=== PATIENT | male | born 2000 | race Caucasian/White ===

== ENCOUNTER 2022-07-21 14:02 | Emergency (ER) | payer BC, SELFPAY ==
[2022-07-21 14:30] VITALS: PULSE 96; RESP 24; TEMP 38.8; O2SAT 99; BMI 25.8
[2022-07-21 15:12] LABS: PCR FLU A Negative PCR FLU A (Negative); PCR FLU B Negative PCR FLU B (Negative); PCR RSV Negative PCR RSV (Negative)
--- NOTE | 2022-07-21 15:13 | ED.GENADULT ---
HPI - General Adult General Time Seen by Provider: 15:13 Date Seen: 07/21/22 Chief complaint: Fever Stated complaint: Fever Nausea Headache Body pain Time Seen by Provider: 07/21/22 14:44 Source: patient Mode of arrival: ambulatory Limitations: no limitations History of Present Illness HPI narrative: Chase is a 21-year-old male with no past medical history presents emerged department with co-worker with fever. Patient states that he started having a fever Tuesday evening, did work over the weekend which involves traveling to different homes meeting different people. Symptoms include feeling very warm, chills, denies any real cough, he has had a headache which is bitemporal tension-like radiates to the back of his neck. Associated nausea but no vomiting, his oral intake has decreased, denies any smoking history, denies any alcohol use. She has also had ongoing body aches, myalgias, patient has had COVID in the past including January of 2022 and also in 2019, he got 1 of the vaccinations for COVID. Denies any sick contacts. He was seen in [facility] urgency Room yesterday, urinalysis was negative, COVID/influenza and rapid strep were negative. He was given some IV fluids Toradol and felt better and was sent home. Continue to have sweats, chills and fever overnight and this morning, last time he took Tylenol Motrin was about 6 hours ago. Times he feels disorientated especially when he ambulates, almost like tunnel vision. He has had associated left-sided chest tightness, no real chest pain or shortness of breath, no abdominal pain or diarrhea. No recent travel. Denies difficulty moving his neck. He was seen in clinic today and was sent over here. Related Data Home Medications Medication Instructions Recorded Confirmed acetaminophen 500 mg tablet 500 mg PO Q6H PRN 07/21/22 07/21/22 (Acetaminophen Extra Strength) ibuprofen 600 mg tablet 600 mg PO Q6H PRN 07/21/22 07/21/22 ondansetron 4 mg disintegrating 4 mg PO Q6H 07/21/22 07/21/22 tablet Allergies Allergy/AdvReac Type Severity Reaction Status Date / Time No Known Drug Allergies Allergy Verified 07/21/22 14:29 Review of Systems Status of ROS: Reports: 10 or more systems reviewed and unremarkable except as noted in History and below PFSH PFSH Social History Smoking Status: Former smoker Do you use any of these nicotine containing products: None Second hand tobacco smoke exposure: No How often do you have a drink containing alcohol: monthly or less AUDIT-C Alcohol total score: 1 Non-prescribed substance use: denies use Exam Narrative: Exam Narrative: General: No obvious distress, laying comfortably, nontoxic in appearance HEENT: Oropharynx is moist, bilaterally enlarged tonsils right greater than left, right tonsillar pillar has exudate, uvula midline, no abscess Right submandibular adenopathy, pupils equal round reactive to light, extraocular muscles intact, nontender to palpation of frontal maxillary sinuses, Tympanic membranes within normal limits bilaterally Neck: No meningeal signs, full range of motion, supple Lungs: Clear to auscultation bilaterally Heart: Normal sinus rhythm S1-S2 Abdomen: Bowel sounds present, soft, nontender in all 4 quadrants Muscle skeletal: No joint swelling, full range of motion upper lower extremities, +5 strength upper lower extremities Neuro: Alert awake and oriented x3, cranial nerves 2-12 grossly intact Const: Vital Signs, click to edit/add: Vital Signs - 24 hr 07/21/22 14:30 07/21/22 16:58 07/21/22 16:59 Temperature 102 F H 98.1 F 98.1 F Pulse Rate [Pulse Oximeter] 96 Respiratory Rate 24 18 Pulse Oximetry 99 98 Oxygen Delivery Me thod Room Air Room Air Course Course Hospital Course: 3:00 PM: AIDET performed. Vitals show fever of 102, vitals otherwise stable, workup will include rapid strep PCR, SARs/influenza/RSV, blood work will include Monospot, CBC, lactate, blood cultures and CMP. Less likely meningitis, seems more viral related, 1 L 0.9 normal saline bolus, 1 g Tylenol and 30 mg IV Toradol for his headache, myalgias joint pain. Seems viral in origin. Differential diagnosis include COVID-19, strep throat illness, infectious mononucleosis, pneumonia, bronchitis, intra-abdominal infections, urinary tract infection meningitis, osteomyelitis, influenza as well as all etiologies. Reevaluation(s) Reevaluation #1: 5:00PM: Patient was updated on his lab imaging results, SARs/influenza/RSV was negative, rapid strep PCR was also negative, CBC showed no leukocytosis, lactate 1.1, infectious mononucleosis was also normal, XR chest PA and lateral showed no acute cardiopulmonary process, he was given IV fluids, Tylenol and Toradol and his symptoms improved, also obtain chlamydia/GC DNA amplified in house urine sample patient has requested, he has no urinary symptoms. Urinalysis from yesterday was negative. Fever resolved during stay in the emergency department, plan would be to discharge, he will follow up with his primary care provider over the next 5-7 days for year followup and recheck. Reasons to return given. Vital Signs Vital signs: Initial Vital Signs Temperature 102 F H 07/21/22 14:30 Temperature Source Temporal Artery Scan 07/21/22 14:30 Pulse Rate 96 07/21/22 14:30 Pulse Rhythm 07/21/22 14:30 Respiratory Rate 24 07/21/22 14:30 Pulse Oximetry 99 07/21/22 14:30 Oxygen Delivery Method 07/21/22 14:30 Vital Signs Temperature 102 F H 07/21/22 14:30 Pulse Rate 96 07/21/22 14:30 Respiratory Rate 24 07/21/22 14:30 Pulse Oximetry 99 07/21/22 14:30 Oxygen Delivery Method 07/21/22 14:30 Temperature 98.1 F 07/21/22 16:59 Pulse Rate 96 07/21/22 14:30 Respiratory Rate 18 07/21/22 16:59 Pulse Oximetry 98 07/21/22 16:59 Oxygen Delivery Method 07/21/22 16:59 Medical Decision Making Lab Data Labs: Lab Results 07/21/22 07/21/22 07/21/22 Range/Units 04:15 04:15 04:15 WBC 7.71 (4.50-11.00) K/uL RBC 5.04 (4.30-5.90) m/uL Hgb 14.2 (13.5-17.5) gm/dL Hct 42.0 (37.0-53.0) % MCV 83 (80-100) fL MCH 28 (26-34) pg MCHC 34 (32-36) gm/dL RDW Coeff of Evan 12.0 (11.5-15.5) % Plt Count 150 (140-440) K/uL Neut % (Auto) 73.5 H (42.0-72.0) % Lymph % (Auto) 13.2 L (20-44) % Starke % (Auto) 12.6 H (0.0-11.0) % Eos % (Auto) 0.0 (0.0-7.0) % Baso % (Auto) 0.1 (0.0-3.0) % Neut # (Auto) 5.70 (1.7-7.0) K/uL Lymph # (Auto) 1.00 (0.90-2.90) K/uL Starke # (Auto) 1.00 H (0.00-0.90) K/UL Eos # (Auto) 0.00 (0.00-0.50) K/uL Baso # (Auto) 0.01 (0.00-0.30) K/uL Abs Immat Gran (auto) 0.05 (0.00-0.30) K/uL Sodium 135 (135-149) mmol/L Potassium 4.1 (3.6-5.1) mmol/L Chloride 98 (96-114) mmol/L Carbon Dioxide 26 (20-32) mmol/L BUN 11 (5-24) mg/dL Creatinine 0.9 (0.5-1.5) mg/dL Estimated Creat Clear 112.94 Estimated GFR 125 ml/min Glucose 94 (60-115) mg/dL Lactate (0.5-1.9) mmol/L Calcium 8.9 (8.4-10.6) mg/dL Total Bilirubin 0.7 (0.1-1.5) mg/dL AST 22 (12-35) U/L ALT 13 (4-50) U/L Alkaline Phosphatase 48 (40-150) U/L Total Protein 7.7 (6.0-8.3) g/dL Albumin 4.7 (3.3-5.0) g/dL SARS-CoV-2 (PCR) (Negative) Monoscreen Negative (Negative) Influenza Type A (PCR) (Negative) Influenza Type B (PCR) (Negative) RSV (PCR) (Negative) Group A Strep DNA (No Detected) 07/21/22 07/21/22 07/21/22 Range/Units 04:15 14:13 15:30 WBC (4.50-11.00) K/uL RBC (4.30-5.90) m/uL Hgb (13.5-17.5) gm/dL Hct (37.0-53.0) % MCV (80-100) fL MCH (26-34) pg MCHC (32-36) gm/dL RDW Coeff of Evan (11.5-15.5) % Plt Count (140-440) K/uL Neut % (Auto) (42.0-72.0) % Lymph % (Auto) (20-44) % Starke % (Auto) (0.0-11.0) % Eos % (Auto) (0.0-7.0) % Baso % (Auto) (0.0-3.0) % Neut # (Auto) (1.7-7.0) K/uL Lymph # (Auto) (0.90-2.90) K/uL Starke # (Auto) (0.00-0.90) K/UL Eos # (Auto) (0.00-0.50) K/uL Baso # (Auto) (0.00-0.30) K/uL Abs Immat Gran (auto) (0.00-0.30) K/uL Sodium (135-149) mmol/L Potassium (3.6-5.1) mmol/L Chloride (96-114) mmol/L Carbon Dioxide (20-32) mmol/L BUN (5-24) mg/dL Creatinine (0.5-1.5) mg/dL Estimated Creat Clear Estimated GFR ml/min Glucose (60-115) mg/dL Lactate 1.1 (0.5-1.9) mmol/L Calcium (8.4-10.6) mg/dL Total Bilirubin (0.1-1.5) mg/dL AST (12-35) U/L ALT (4-50) U/L Alkaline Phosphatase (40-150) U/L Total Protein (6.0-8.3) g/dL Albumin (3.3-5.0) g/dL SARS-CoV-2 (PCR) Negative SARS-CoV-2 (Negative) Monoscreen (Negative) Influenza Type A (PCR) Negative PCR FLU A (Negative) Influenza Type B (PCR) Negative PCR FLU B (Negative) RSV (PCR) Negative PCR RSV (Negative) Group A Strep DNA NOT DETECTED (No Detected) Discharge Plan Discharge Clinical Impression: Fever Patient Disposition: Home, Self-Care Condition: Improved Instructions: Fever in Adults (ED) Additional Instructions: To continue with Motrin 600 mg and Tylenol every 6 hours for pain, follow-up with a primary care provider over the next 5-7 days for ER followup and recheck. Return precautions given. Prescriptions: No Action acetaminophen [Acetaminophen Extra Strength] 500 mg tablet 500 mg PO Q6H PRN ibuprofen 600 mg tablet 600 mg PO Q6H PRN ondansetron 4 mg tablet,disintegrating 4 mg PO Q6H Follow Up/Referrals: Provider,Not a Local [Primary Care Provider] - Stand Alone Forms: Refinder by [employer] Info Instructions
[2022-07-21 15:17] LABS: SARS PCR* Negative SARS-CoV-2 (Negative)
[2022-07-21] MEDS: ACETAMINOPHEN 500 MG TABLET 1000 MG PO (15:56)
[2022-07-21] MEDS: KETOROLAC 30 MG/ML inj IVP (15:56)
[2022-07-21] MEDS: 0.9 % SODIUM CHLORIDE 1000 ml 1,000 ML IV (15:57)
[2022-07-21 15:59] LABS: Lactate* 1.1 mmol/L (0.5-1.9)
[2022-07-21 16:03] LABS: Basophils Absolute Auto 0.01 K/uL (0.00-0.30); Basophils Percent Auto 0.1 % (0.0-3.0); Hemoglobin* 14.2 gm/dL (13.5-17.5); Immature Granulocytes Abs Auto 0.05 K/uL (0.00-0.30); Lymphocytes Percent Auto 13.2 % (20-44); Mean Corpuscular HGB Conc 34 gm/dL (32-36); Mean Corpuscular Hemoglobin 28 pg (26-34); Mean Corpuscular Volume 83 fL (80-100); Monocytes Percent Auto 12.6 % (0.0-11.0); Neutrophils Percent Auto 73.5 % (42.0-72.0); Platelet Count* 150 K/uL (140-440); Red Blood Count 5.04 m/uL (4.30-5.90); White Blood Count* 7.71 K/uL (4.50-11.00)
[2022-07-21 16:09] LABS: Mono Screen* Negative (Negative)
[2022-07-21 16:10] LABS: Albumin* 4.7 g/dL (3.3-5.0); Chloride* 98 mmol/L (96-114)
[2022-07-21 16:11] LABS: Potassium* 4.1 mmol/L (3.6-5.1); Sodium* 135 mmol/L (135-149)
[2022-07-21 16:12] LABS: Slide Review Reflex No
[2022-07-21 16:13] LABS: Alkaline Phosphatase* 48 U/L (40-150); Aspartate Amino Transferase* 22 U/L (12-35); Bilirubin Total* 0.7 mg/dL (0.1-1.5); Blood Urea Nitrogen* 11 mg/dL (5-24); Carbon Dioxide* 26 mmol/L (20-32); Creatinine* 0.9 mg/dL (0.5-1.5); Est. Creatinine Clearance* 112.94; Estimated Glomerular Filt Rate 125 ml/min; Total Protein* 7.7 g/dL (6.0-8.3)
[2022-07-21 16:14] LABS: Alanine Aminotransferase* 13 U/L (4-50); Calcium* 8.9 mg/dL (8.4-10.6); Glucose* 94 mg/dL (60-115)
--- NOTE | 2022-07-21 16:15 | CRLHL7_ITS ---
For Patients: As a result of the Century Cures Act, medical imaging exams and procedure reports are released immediately into your electronic medical record. You may view this report before your referring provider. If you have questions, please contact your health care provider. INDICATION: R/O PNA? TECHNIQUE: Chest 2 views. COMPARISON: 12/04/09 FINDINGS: Cardiovascular and mediastinum: Heart size and vasculature are normal in caliber and appearance. Mediastinum is within normal limits. Lungs and pleural spaces: Lungs are clear. No sign of infiltrate or mass. No sign of pleural effusion. No pneumothorax. Bones and soft tissues: No significant findings. IMPRESSION: Unremarkable chest. Dictated by: Mukund Bender MD @ 07/21/2022 17:13:20 (Electronically Signed)
[2022-07-21 16:20] LABS: Strep A DNA Probe* NOT DETECTED (No Detected)
[2022-07-21 16:58] VITALS: TEMP 36.7
[2022-07-21 16:59] VITALS: RESP 18; TEMP 36.7; O2SAT 98
[2022-07-21 19:46] LABS: GC DNA Amplified* NOT DETECTED (No Detected)
[2022-07-21 20:02] LABS: Chlamydia DNA Amplified* DETECTED (No Detected)
--- NOTE | 2022-07-21 21:15 | ED.NURSE ---
Call to pt with chlamydia results. Pt informed that rx sent to preferred pharmacy and verbalizes understanding. Pt also states he will have partners tested. Pt denies further questions at this time.
== END 2022-07-21 18:38 | disposition home or self-care (01) ==
PROVIDERS: Emergency Provider Student in an Organized Health Care Education/Training Program
DX: R50.9 Fever, unspecified (principal)
CPT/HCPCS: 36415; 71046; 80053; 83605; 85025; 86308; 87040; 87491; 87502; 87591; 87634; 87635; 87651; 96374; 99283; 99284; A9270; J1885; J7030